=== PATIENT | female | born 1955 | race Two or more races ===

== ENCOUNTER 2016-06-09 00:58 | Emergency (ER) | payer MEDICARE, OTHER ==
[~2016-06-09] VITALS: Ht 162.6 cm; Wt 83.9 kg
[2016-06-09] MEDS ORDERED: FESO8TAB PO (01:15)
[2016-06-09] MEDS ORDERED: ASPI-605 PO (01:15)
[2016-06-09] MEDS ORDERED: LORA-258 PO (01:15)
[2016-06-09] MEDS ORDERED: ARIP400S IM (01:15)
[2016-06-09] MEDS ORDERED: ESOM10SU PO (01:15)
[2016-06-09] MEDS ORDERED: ASPIRIN 325 MG TABLET ONE (01:19)
[2016-06-09 01:22] LABS: BASOPHILS # (AUTO) 0.1 /CMM (0.0-0.2); BASOPHILS % (AUTO) 0.4 % (0.0-2.0); DIFF TOTAL % 100 %; EOSINOPHILS # (AUTO) 0.2 /CMM (0.0-0.7); EOSINOPHILS % (AUTO) 1.8 % (0.0-6.0); HEMATOCRIT 38 % (33-45); HEMOGLOBIN 12.2 g/dL (11.5-14.8); LYMPHOCYTES # (AUTO) 5.5 /CMM (0.8-4.8); LYMPHOCYTES % (AUTO) 46.1 % (20.0-44.0); MEAN CORPUSCULAR HEMOGLOBIN 29 PG (26.0-33.0); MEAN CORPUSCULAR HGB CONC 33 g/dl (31.0-36.0); MEAN CORPUSCULAR VOLUME 89 fL (82-100); MONOCYTES % (AUTO) 7.9 % (2.0-12.0); NEUTROPHILS # (AUTO) 5.3 /CMM (1.8-8.9); NEUTROPHILS % (AUTO) 43.8 % (43.0-81.0); PLATELET COUNT (AUTO) 278 /CMM (150-450)
[2016-06-09] MEDS ORDERED: ASPIRIN 325 MG TABLET PO ONE (01:30)
[2016-06-09 01:37] LABS: ANION GAP 14 (5-14); CALCIUM, SERUM 9.2 mg/dL (8.5-10.1); CARBON DIOXIDE 24 mmol/L (21-32); CHLORIDE 104 mmol/L (98-107); GFR 57 mL/min (>60); GLUCOSE 138 mg/dL (74-106); POTASSIUM 4.3 mmol/L (3.5-5.1); SODIUM SERUM 137 mmol/L (136-145); UREA NITROGEN, BLOOD 28 mg/dL (7-18)
[2016-06-09 01:42] LABS: INR 0.96 (0.87-1.13); PROTHROMBIN TIME 10.4 SECS (9.5-12.7)
[2016-06-09 01:45] LABS: TROPONIN I < 0.017 ng/mL (0.00-0.056)
[2016-06-09] MEDS ORDERED: LORAZEPAM 1 MG TABLET ONE (02:08)
[2016-06-09] MEDS ORDERED: IV NS 0.9% 500 ML IV ONE (02:20)
[2016-06-09] MEDS ORDERED: IV SET PRIMARY 1 EA INFUS.SET MC ONE (02:21)
[2016-06-09] MEDS ORDERED: LORAZEPAM 1 MG TABLET PO ONE (02:30)
[2016-06-09] MEDS ORDERED: IV NS 0.9% 1,000 ML BAG IV ONE (02:30)
[2016-06-09 03:08] LABS: ADD UA MICROSCOPIC YES; KETONES,URINE NEGATIVE (NEGATIVE); LEUKOCYTE ESTERASE ,URINE NEGATIVE (NEGATIVE)
[2016-06-09 03:16] LABS: ADD URINE CULTURE NO; WBC,URINE 0-2 /HPF (0-3)
[2016-06-09 03:32] VITALS: BP 104/67
== END 2016-06-09 03:33 | disposition home or self-care (01) ==
LOC: ER 01:00
DX: R07.89 Other chest pain (principal); E11.9 Type 2 diabetes mellitus without complications; F17.210 Nicotine dependence, cigarettes, uncomplicated; F41.9 Anxiety disorder, unspecified; F32.9 Major depressive disorder, single episode, unspecified; K21.9 Gastro-esophageal reflux disease without esophagitis; Z95.0 Presence of cardiac pacemaker; Z88.5 Allergy status to narcotic agent; Z88.8 Allergy status to other drugs, medicaments and biological substances
CPT/HCPCS: 36415; 71010; 80048; 81001; 84484; 85025; 85730; 93005; 99285; A4606; J7040; 81000-TC; Z7610

== ENCOUNTER 2018-07-06 10:38 | Emergency (ER) | payer MEDICARE, MEDICAID ==
[~2018-07-06] VITALS: Ht 167.6 cm; Wt 85.7 kg
[~2018-07-06 10:38] MED LIST: ARIP400S IM; ASPI-605 PO; ESOM10SU PO; FESO8TAB PO; LORA-258 PO
[2018-07-06 10:43] VITALS: BP 134/78
--- NOTE | 2018-07-06 10:43 | NUR ---
PT AMULATORY TO ER BED 13 C/O LOWER BACK PAIN R/T BLE X 1 MONTH NOW, WORST TODAY. STABLE VITALS. AWAITING MD [place].
--- NOTE | 2018-07-06 11:02 | NUR ---
DR GRANDE AT BEDSIDE FOR EVAL.
[2018-07-06] MEDS ORDERED: MORPHINE SULFATE INJ 10 MG/ML DISP.SYRIN ONE (11:10)
[2018-07-06] MEDS ORDERED: ONDANSETRON 4 MG TAB.RAPDIS ONE (11:10)
[2018-07-06] MEDS: ONDANSETRON 4 MG TAB.RAPDIS SL ONE (11:13)
[2018-07-06] MEDS: MORPHINE SULFATE INJ 2 MG/ML DISP.SYRIN IM ONE (11:15)
--- NOTE | 2018-07-06 11:18 | NUR ---
PT TO RADIOLOG[facility] FOR LUMBAR SP[facility]
== END 2018-07-06 13:41 | disposition home or self-care (01) ==
LOC: ER 10:40
DX: M54.42 Lumbago with sciatica, left side (principal); M54.41 Lumbago with sciatica, right side; K21.9 Gastro-esophageal reflux disease without esophagitis; F41.9 Anxiety disorder, unspecified; F32.9 Major depressive disorder, single episode, unspecified; F17.200 Nicotine dependence, unspecified, uncomplicated; Z95.0 Presence of cardiac pacemaker; Z88.6 Allergy status to analgesic agent; Z88.8 Allergy status to other drugs, medicaments and biological substances; Z79.82 Long term (current) use of aspirin; Z79.899 Other long term (current) drug therapy
CPT/HCPCS: 72131; 96372; 99284; A4606; J2270; Q0162

== ENCOUNTER 2021-06-03 11:15 | Outpatient (CLI) | payer MEDICARE, MEDICAID ==
[2021-06-03] MEDS ORDERED: BARIUM SULFATE 98% 135 ML SUSP.RECON PO ONE (12:44)
== END 2021-06-03 23:59 | disposition home or self-care (01) ==
LOC: RAD 11:15
PROVIDERS: ATTEND Surgery
DX: K44.9 Diaphragmatic hernia without obstruction or gangrene (principal); K21.9 Gastro-esophageal reflux disease without esophagitis
CPT/HCPCS: 74246-TC